=== PATIENT | female | born 1990 | race American Indian/Alaskan Native ===

== ENCOUNTER 2017-08-23 18:45 | Emergency (ER) | payer OTHER ==
[2017-08-23 18:58] VITALS: BP 135/92
[2017-08-23] MEDS ORDERED: MOTRIN PO ONE (20:14)
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
== END 2017-08-23 21:23 | disposition home or self-care (01) ==
LOC: ED 18:45
DX: S16.1XXA Strain of muscle, fascia and tendon at neck level, initial encounter (principal); V89.2XXA Person injured in unspecified motor-vehicle accident, traffic, initial encounter; Y93.89 Activity, other specified; Y92.89 Other specified places as the place of occurrence of the external cause; Y99.8 Other external cause status
CPT/HCPCS: 72040; 99283

== ENCOUNTER 2017-12-13 20:16 | Emergency (ER) | payer OTHER ==
[2017-12-13 20:30] VITALS: BP 112/75
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
[2017-12-13 21:50] LABS: HCG Qualitative,Urine Negative (Negative)
== END 2017-12-13 22:30 | disposition home or self-care (01) ==
LOC: ED 20:16
DX: S16.1XXA Strain of muscle, fascia and tendon at neck level, initial encounter (principal); S39.012A Strain of muscle, fascia and tendon of lower back, initial encounter; F17.200 Nicotine dependence, unspecified, uncomplicated; Z88.5 Allergy status to narcotic agent; V49.49XA Driver injured in collision with other motor vehicles in traffic accident, initial encounter; Y93.89 Activity, other specified; Y92.89 Other specified places as the place of occurrence of the external cause; Y99.8 Other external cause status
CPT/HCPCS: 81025; 99283